=== PATIENT | female | born 1980 | race Caucasian/White ===

== ENCOUNTER 2017-10-01 09:31 | Emergency (ER) | payer OTHER ==
--- NOTE | 2017-10-01 11:04 | ED ---
General Adult HPI - General Chief complaint: Nausea/Vomiting/Diarrhea Stated complaint: Fall-Vomiting, Poss Head Injury Time Seen by Provider: 10/01/17 10:47 Source: patient, RN notes reviewed Mode of arrival: ambulatory Limitations: no limitations - History of Present Illness Initial comments: 36-year-old female presenting with nausea and vomiting over the past 24 hours. Patient fell on Friday striking the right side of her face. She has had headaches since that time which is worsened over the past 24 hours. She developed nausea with eating and some vomiting over the past 24 hours. No abdominal pain. No chest pain or shortness of breath. No extremity pain. Patient denies any numbness or tingling or weakness in the extremities. She does have some mild photophobia and pain on the right side of her face where the injury occurred. There was no loss of consciousness. Patient is not currently on any medication. Denies any neck pain. - Related Data Home Medications Medication Instructions Recorded Confirmed Acetaminophen Tab [Tylenol Tab] 650 mg PO Q4H PRN 10/01/17 10/01/17 [id number] 1 tab PO Q4HR PRN 10/01/17 10/01/17 [Excedrin] Ibuprofen [Motrin Ib] 800 mg PO Q6H PRN 10/01/17 10/01/17 Previous Rx's Medication Instructions Recorded Ondansetron Odt [Zofran Odt] 4 mg PO Q8HR PRN #10 tab 10/01/17 Allergies Allergy/AdvReac Type Severity Reaction Status Date / Time No Known Allergies Allergy Verified 10/01/17 09:53 Review of Systems ROS Statement: Those systems with pertinent positive or pertinent negative responses have been documented in the HPI. ROS Other: All systems not noted in ROS Statement are negative. Past Medical History Past Medical History: Fibromyalgia, Rheumatoid Arthritis (RA) Additional Past Medical History / Comment(s): Diverticulitis History of Any Multi-Drug Resistant Organisms: MRSA Date of last positivie culture/infection: left leg MDRO Source:: 2011 Past Surgical History: Section, Cholecystectomy, Tubal Ligation Past Psychological History: Depression Smoking Status: Current every day smoker Past Alcohol Use History: None Reported Past Drug Use History: None Reported General Exam Limitations: no limitations General appearance: alert, in no apparent distress Head exam: Present: normocephalic. Absent: atraumatic (Right periorbital ecchymosis) Eye exam: Present: PERRL, EOMI, periorbital tenderness (Right periorbital tenderness no fracture appreciated) ENT exam: Present: mucous membranes moist Neck exam: Absent: normal inspection, tenderness, meningismus Respiratory exam: Present: normal lung sounds bilaterally. Absent: respiratory distress, wheezes Cardiovascular Exam: Present: regular rate, normal rhythm GI/Abdominal exam: Present: soft. Absent: distended Extremities exam: Present: normal inspection, full ROM, normal capillary refill. Absent: tenderness, joint swelling Neurological exam: Present: alert, oriented X3, CN II-XII intact. Absent: motor sensory deficit Psychiatric exam: Present: normal affect, normal mood Skin exam: Present: warm, dry, intact. Absent: cyanosis, diaphoretic Course Vital Signs 10/01/17 09:44 Temperature 98.0 F Pulse Rate 81 Respiratory 18 Rate Blood Pressure 132/82 O2 Sat by Pulse 99 Oximetry Medical Decision Making - Medical Decision Making 36-year-old female presenting with head injury and nausea vomiting. Patient's symptoms are somewhat concerning, head CT is obtained and this is negative for intracranial hemorrhage. CT cervical spine is negative for fracture subluxation. Her exam is nonfocal. History and exam concerning for concussion. Patient will take several days off work, she is instructed to follow-up with her primary care physician. She will be given Zofran for her nausea. Disposition Clinical Impression: Concussion Disposition: HOME SELF-CARE Condition: Good Instructions: Concussion (ED) Prescriptions: Ondansetron Odt [Zofran Odt] 4 mg PO Q8HR PRN #10 tab PRN Reason: Vomiting Is patient prescribed a controlled substance at d/c from ED?: No Referrals: None,Stated [Primary Care Provider] - 1-2 days Nay Angela MD [STAFF PHYSICIAN] - 1-2 days Time of Disposition: 11:35
--- NOTE | 2017-10-01 11:21 | CT ---
EXAMINATION TYPE: CT brain dhruvine wo con DATE OF EXAM: 10/01/2017 COMPARISON: NONE HISTORY: Fall, vomiting. Possible head injury. CT DLP: 1877 mGycm. Automated Exposure Control for Dose Reduction was Utilized. TECHNIQUE: CT scan of the head and cervical spine are performed without contrast. FINDINGS: There is no acute intracranial hemorrhage, mass effect, or midline shift identified. The ventricles and sulci are within normal limits in size. The globes are intact and the visualized sin uses are clear. The calvarium is intact. Cervical spine is visualized in its entirety from C1 through upper thoracic levels and demonstrates s atisfactory alignment without evidence of acute fracture or dislocation. Prevertebral soft tissue ap pears within normal limits. The C1-C2 articulation is within normal limits on the coronal images. V ertebral body heights and disc space heights are maintained. No large posterior disc herniations are present. Review of axial images shows no significant findings at any cervical level. Thyroid gland is felt within normal limits. Lung apices are clear. Scattered subcentimeter lymph nodes are present bi laterally. IMPRESSION: 1. There is no acute fracture or dislocation evident in the cervical spine. 2. No acute intracranial hemorrhage, mass effect, or midline shift is seen.
[2017-10-01 11:41] VITALS: BP 129/70; PULSE 78; RESP 16; TEMP 97.8
== END 2017-10-01 11:40 | disposition home or self-care (01) ==
LOC: EC 09:31
DX: S06.0X0A Concussion without loss of consciousness, initial encounter (principal); S00.11XA Contusion of right eyelid and periocular area, initial encounter; F17.200 Nicotine dependence, unspecified, uncomplicated; Z86.14 Personal history of Methicillin resistant Staphylococcus aureus infection; W18.09XA Striking against other object with subsequent fall, initial encounter
CPT/HCPCS: 70450; 72125; 99284

== ENCOUNTER 2021-10-19 09:14 | Observation (INO) | payer MEDICARE, OTHER ==
[2021-10-19 09:48] LABS: Basophils % (A) 0 %; Eosinophils # (A) 0.2 k/uL (0-0.7); Eosinophils % (A) 2 %; HCT 38.9 % (34.0-46.0); HGB 12.2 gm/dL (11.4-16.0); Lymphocytes % (A) 30 %; MCH 26.5 pg (25.0-35.0); MCHC 31.3 g/dL (31.0-37.0); MCV 84.6 fL (80.0-100.0); Mean Platelet Volume 7.4; Monocytes # (A) 0.4 k/uL (0-1.0); Monocytes % (A) 4 %; Neutrophils # (A) 6.3 k/uL (1.3-7.7); Neutrophils % (A) 62 %; Platelet Count 385 k/uL (150-450); RDW 14.7 % (11.5-15.5); WBC 10.2 k/uL (3.8-10.6)
--- NOTE | 2021-10-19 09:55 | XR ---
EXAMINATION TYPE: XR chest 2V DATE OF EXAM: 10/19/2021 COMPARISON: NONE HISTORY: Chest pain. TECHNIQUE: Frontal and lateral views of the chest are obtained. FINDINGS: There is no focal air space opacity, pleural effusion, or pneumothorax seen. The cardiac silhouette size is within normal limits. The osseous structures are intact. IMPRESSION: No acute process.
[2021-10-19 10:01] LABS: ALT 19 U/L (4-34); AST 21 U/L (14-36); African American GFR (CKD) >90 (>60 ml/min/1.73 sqM); Albumin 4.4 g/dL (3.5-5.0); Alkaline Phosphatase 103 U/L (38-126); Anion Gap 10 mmol/L; Blood Urea Nitrogen 11 mg/dL (7-17); Carbon Dioxide 20 mmol/L (22-30); Chloride 109 mmol/L (98-107); Glucose 97 mg/dL (74-99); Magnesium 2.1 mg/dL (1.6-2.3); Non-African American GFR(CKD) >90 (>60 ml/min/1.73 sqM); Potassium 4.1 mmol/L (3.5-5.1); Sodium 139 mmol/L (137-145); Total Bilirubin 0.2 mg/dL (0.2-1.3); Total Protein 7.2 g/dL (6.3-8.2)
[2021-10-19 10:13] LABS: INR 0.9 (<1.2); Partial Thromboplastin Time 26.4 sec (22.0-30.0); Prothrombin Time 9.8 sec (9.0-12.0)
[2021-10-19] MEDS ORDERED: ASPIRIN 81 MG PO STA (12:13)
--- NOTE | 2021-10-19 12:13 | ED ---
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 Patient states that she has a history of MS and antithrombin 3 and was placed on eliquis but stopped taking it 3 years ago related to cost. She denies any diaphoresis, no nausea vomiting diarrhea or fevers. No productive cough. Patient states that she is a daily smoker. No family history of cardiac disease. Patient states that she has a primary care doctor and neurologist Dr. Chun in [place] where she lives. -: hour(s) (5) Location: chest Radiation: non-radiation Severity scale (1-10): 7 Quality: sharp, other (burning) Improves with: none Worsens with: none Associated Symptoms: denies other symptoms Treatments Prior to Arrival: none - Related Data Home Medications Medication Instructions Recorded Confirmed No Known Home Medications 10/19/21 10/19/21 Allergies Allergy/AdvReac Type Severity Reaction Status Date / Time No Known Allergies Allergy Verified 10/19/21 12:51 Review of Systems ROS Statement: Those systems with pertinent positive or pertinent negative responses have been documented in the HPI. ROS Other: All systems not noted in ROS Statement are negative. Past Medical History Past Medical History: Fibromyalgia, Rheumatoid Arthritis (RA) Additional Past Medical History / Comment(s): Diverticulitis, antithrombin 3. History of Any Multi-Drug Resistant Organisms: MRSA Date of last positivie culture/infection: left leg MDRO Source:: 2011 Past Surgical History: Section, Cholecystectomy, Tubal Ligation Past Psychological History: Depression Smoking Status: Current every day smoker Past Alcohol Use History: None Reported Past Drug Use History: Marijuana General Exam Limitations: no limitations General appearance: alert, in no apparent distress Head exam: Present: atraumatic Eye exam: Present: normal appearance Respiratory exam: Present: normal lung sounds bilaterally, wheezes (slight right posterior upper lobe). Absent: chest wall tenderness, accessory muscle use, decreased breath sounds Cardiovascular Exam: Present: normal rhythm, bradycardia (56) GI/Abdominal exam: Present: soft. Absent: distended, tenderness Extremities exam: Present: normal inspection, full ROM, normal capillary refill. Absent: tenderness, pedal edema Back exam: Absent: tenderness, CVA tenderness (R), CVA tenderness (L) Neurological exam: Present: alert, oriented X3 Psychiatric exam: Present: normal affect, normal mood Skin exam: Present: warm, dry, intact. Absent: normal color, cyanosis, diaphoretic, petechiae, pallor Course Vital Signs 10/19/21 10/19/21 10/19/21 09:22 12:18 13:59 Temperature 98.3 F 98.2 F 98.1 F Pulse Rate 72 51 L 51 L Respiratory 18 14 14 Rate Blood Pressure 129/82 114/64 111/84 O2 Sat by Pulse 100 98 99 Oximetry EKG Findings - EKG Results: EKG: sinus rhythm (Ventricular rate 56, AR interval 0.166, QRS 0.98, QTc 0.389) Medical Decision Making - Medical Decision Making Patient complaining of stabbing and burning chest pain since 7 AM with no relief. She is a smoker, history of antithrombin III but not taking eliquis as prescribed. She also has a history of MS. She has not had a cardiac evaluation in the past. CBC and electrolytes are unremarkable. Troponin is negative at 0.012, EKG shows sinus bradycardia at 56. Patient will be admitted to observation for cardiac consult. Patient is agreeable to this plan of care. CT angiogram of the chest is pending along with second troponin. Case discussed with Dr. Wade. - Lab Data Result diagrams: 10/19/21 09:33 10/19/21 09:33 Lab Results 10/19/21 10/19/21 10/19/21 Range/Units 09:33 09:33 09:33 WBC 10.2 (3.8-10.6) k/uL RBC 4.60 (3.80-5.40) m/uL Hgb 12.2 (11.4-16.0) gm/dL Hct 38.9 (34.0-46.0) % MCV 84.6 (80.0-100.0) fL MCH 26.5 (25.0-35.0) pg MCHC 31.3 (31.0-37.0) g/dL RDW 14.7 (11.5-15.5) % Plt Count 385 (150-450) k/uL MPV 7.4 Neutrophils % 62 % Lymphocytes % 30 % Monocytes % 4 % Eosinophils % 2 % Basophils % 0 % Neutrophils # 6.3 (1.3-7.7) k/uL Lymphocytes # 3.0 (1.0-4.8) k/uL Monocytes # 0.4 (0-1.0) k/uL Eosinophils # 0.2 (0-0.7) k/uL Basophils # 0.0 (0-0.2) k/uL PT 9.8 (9.0-12.0) sec INR 0.9 (<1.2) APTT 26.4 (22.0-30.0) sec D-Dimer 0.48 (<0.60) mg/L FEU Sodium 139 (137-145) mmol/L Potassium 4.1 (3.5-5.1) mmol/L Chloride 109 H (98-107) mmol/L Carbon Dioxide 20 L (22-30) mmol/L Anion Gap 10 mmol/L BUN 11 (7-17) mg/dL Creatinine 0.62 (0.52-1.04) mg/dL Est GFR (CKD-EPI)AfAm >90 (>60 ml/min/1.73 sqM) Est GFR (CKD-EPI)NonAf >90 (>60 ml/min/1.73 sqM) Glucose 97 (74-99) mg/dL Calcium 9.0 (8.4-10.2) mg/dL Magnesium 2.1 (1.6-2.3) mg/dL Total Bilirubin 0.2 (0.2-1.3) mg/dL AST 21 (14-36) U/L ALT 19 (4-34) U/L Alkaline Phosphatase 103 (38-126) U/L Troponin I (0.000-0.034) ng/mL Total Protein 7.2 (6.3-8.2) g/dL Albumin 4.4 (3.5-5.0) g/dL 10/19/21 Range/Units 09:33 WBC (3.8-10.6) k/uL RBC (3.80-5.40) m/uL Hgb (11.4-16.0) gm/dL Hct (34.0-46.0) % MCV (80.0-100.0) fL MCH (25.0-35.0) pg MCHC (31.0-37.0) g/dL RDW (11.5-15.5) % Plt Count (150-450) k/uL MPV Neutrophils % % Lymphocytes % % Monocytes % % Eosinophils % % Basophils % % Neutrophils # (1.3-7.7) k/uL Lymphocytes # (1.0-4.8) k/uL Monocytes # (0-1.0) k/uL Eosinophils # (0-0.7) k/uL Basophils # (0-0.2) k/uL PT (9.0-12.0) sec INR (<1.2) APTT (22.0-30.0) sec D-Dimer (<0.60) mg/L FEU Sodium (137-145) mmol/L Potassium (3.5-5.1) mmol/L Chloride (98-107) mmol/L Carbon Dioxide (22-30) mmol/L Anion Gap mmol/L BUN (7-17) mg/dL Creatinine (0.52-1.04) mg/dL Est GFR (CKD-EPI)AfAm (>60 ml/min/1.73 sqM) Est GFR (CKD-EPI)NonAf (>60 ml/min/1.73 sqM) Glucose (74-99) mg/dL Calcium (8.4-10.2) mg/dL Magnesium (1.6-2.3) mg/dL Total Bilirubin (0.2-1.3) mg/dL AST (14-36) U/L ALT (4-34) U/L Alkaline Phosphatase (38-126) U/L Troponin I <0.012 (0.000-0.034) ng/mL Total Protein (6.3-8.2) g/dL Albumin (3.5-5.0) g/dL Disposition Clinical Impression: Chest pain Disposition: ADMITTED IP TO THIS [facility] Decision Date: 10/19/21 Decision Time: 12:31
[2021-10-19] MEDS ORDERED: SODIUM CHLORIDE 0.9% 500 ML 500 ML IV ONE (12:14)
[2021-10-19] MEDS ORDERED: PANTOPRAZOLE 40 MG/10 ML VIAL IVP STA (12:14)
[2021-10-19] MEDS ORDERED: MAG HYDROX/AL HYDROX/SIMETH 30 ML, HYOSCYAMINE ELIXIR 10 ML, LIDOCAINE VISCOUS 2% 10 ML PO STA ×3 (12:14)
[2021-10-19] MEDS ORDERED: ACETAMINOPHEN TAB 325 MG TAB PO PRN (12:36)
[2021-10-19] MEDS ORDERED: ONDANSETRON 4 MG/2 ML VIAL IVP PRN (12:36)
[2021-10-19] MEDS ORDERED: HYDROmorphone 0.5 MG/0.5 ML SYRINGE IVP PRN (12:36)
[2021-10-19] MEDS ORDERED: NALOXONE 0.4 MG/ML 1 ML VIAL IV PRN ×2 (12:36→14:50)
--- NOTE | 2021-10-19 14:53 | CT ---
EXAMINATION TYPE: CT angio chest DATE OF EXAM: 10/19/2021 2:33 PM COMPARISON: None HISTORY: chest pain CT DLP: 590.4 mGycm Automated exposure control for dose reduction was used. CONTRAST: CTA scan of the thorax is performed with IV Contrast, patient injected with 100 mL of Isovue 370, pul monary embolism protocol. 3-D postprocessing was performed.. FINDINGS: There are a few scattered 3 mm pulmonary nodules in the right upper and right middle lobe. There is n o lung consolidation or interstitial density. There is no pleural effusion, pleural thickening or pneumothorax. The great vessels the chest are normal and there is no mediastinal, hilar or axillary adenopathy. The re is satisfactory contrast opacification of pulmonary artery and branches and there are no filling d efects to suggest pulmonary embolism. Limited scanning through the upper abdomen reveals no gross abnormality. The osseous structures are intact. IMPRESSION: 1. No acute cardiopulmonary disease. 2. No evidence of pulmonary embolism. 3. Few scattered small sub-6 mm right upper lobe and middle lobe pulmonary nodules. Follow-up CT ches t in 6 months is recommended to confirm stability.
--- NOTE | 2021-10-19 15:17 | P.HPIM ---
History of Present Illness H&P Date: 10/19/21 Chief Complaint: Chest pain 40-year-old female with no regular doctor follow-ups presented to the ED today with stabbing midsternal chest pain which started this morning. She reports she was not doing any exertional activity at the time the pain started. She still reports chest pain but not as severe as that of this morning. Her past medical history significant for MS and antithrombin III deficiency. She does state that she has a neurologist who she follows up with on an irregular basis. She denies any shortness of breath. She rates the pain at 8 out of 10 in its highest severity. She denies any radiation. She reports that she has been a smoker for 30 years, smokes less than a pack per day. Denies any cardiac history. She states that she was placed on eliquis but stopped taking it 3 years ago due to cost issues. She denies any shortness of breath, palpitations, nausea, vomiting, fever. Denies cough. Workup in the ED was essentially unremarkable including negative initial troponin and negative d-dimer. Patient will be admitted for observation to t rend troponins and rule out ACS. CT angiogram of the chest was negative for PE. Review of Systems Constitutional: Patient reports no fever, no chills, no weight changes, no change in appetite Eyes: Patient reports no double vision, no visual changes ENT: Patient reports no rhinorrhea, no post nasal drip, no sore throat Cardiovascular: Chest pain positive, no orthopnea no PND Respiratory: Patient reports no dyspnea, no cough, no wheeze Gastrointestinal: Patient reports no nausea, no vomiting, no constipation, no diarrhea Genitourinary: Patient reports no dysuria, no urinary frequency, no hematuria. Musculoskeletal: Patient reports no unusual joint pain, no joint swelling or weakness. Patient reports no muscular pain. Psychiatric: Patient reports no changes in mood, no sleeping problems. Patient reports no changes in memory. Endocrine: Patient reports no thirst, no polyuria, no cold intolerance, no heat intolerance. Neurological: Patient reports no unusual paresthesias, no seizures, no paresis, no paralysis, no facila droop, no headache. Heme/Lymphatic: Patient reports no easy bruising, no bleeding tendency, no lymphadenopathy. Allergic/ Immunologic: Patient reports no recent allergic reactions or immunologic history. Skin: Patient reports no rashes or unusual lesions. Past Medical History Past Medical History: Fibromyalgia, Rheumatoid Arthritis (RA) Additional Past Medical History / Comment(s): Diverticulitis, antithrombin 3. History of Any Multi-Drug Resistant Organisms: MRSA Date of last positivie culture/infection: left leg MDRO Source:: 2011 Past Surgical History: Section, Cholecystectomy, Tubal Ligation Past Psychological History: Depression Smoking Status: Current every day smoker Past Alcohol Use History: None Reported Past Drug Use History: Marijuana Medications and Allergies Home Medications Medication Instructions Recorded Confirmed Type No Known Home Medications 10/19/21 10/19/21 History Allergies Allergy/AdvReac Type Severity Reaction Status Date / Time No Known Allergies Allergy Verified 10/19/21 12:51 Physical Exam Vitals: Vital Signs Temp Pulse Resp BP Pulse Ox 10/19/21 13:59 98.1 F 51 L 14 111/84 99 10/19/21 12:18 98.2 F 51 L 14 114/64 98 10/19/21 09:22 98.3 F 72 18 129/82 100 Intake and Output 10/19/21 10/19/21 10/19/21 06:59 14:59 22:59 Other: Weight 92.986 kg Constitutional: No acute distress, conversant, pleasant, obese Eyes: Anicteric sclerae, moist conjunctiva, no lid-lag PERRLA HENMT: Normocephalic / Atraumatic oropharynx clear, no erythema, exudates Neck: Supple, full range of motion, nontender, no masses, or JVD no carotid bruits no thyromegaly no lymphadenopathy Lungs: Bilateral equal air entry with no wheezing or crackles. No use of accessory muscles. Cardiovascular: Heart regular in rate and rhythm, no murmur, no peripheral edema Abdominal: Soft, Nontender, no guarding, rebound or rigidity abdomen moving with respiration normoactive bowel sounds no hepatomegaly, No splenomegaly no pal pable mass no abdominal wall hernia noted Skin: Normal temperature, tone, texture, turgor no induration no subcutaneous nodules no rash,lesions no ulcers Extremities: No digital cyanosis no clubbing pedal pulses intact and symmetrical radial pulses intact and symmetrical normal gait and station no calf tenderness Psychiatric: Alert and oriented to person, place and time appropriate affect intact judgement Neuro: Muscle Strength 5/5 in all 4 extremities sensation to light touch grossly present throughout cranial nerves II-XII grossly intact no focal sensory deficits Results CBC & Chem 7: 10/19/21 09:33 10/19/21 09:33 Labs: Abnormal Lab Results - Last 24 Hours (Table) 10/19/21 Range/Units 09:33 Chloride 109 H (98-107) mmol/L Carbon Dioxide 20 L (22-30) mmol/L Thrombosis Risk Factor Assmnt - DVT/VTE Prophylaxis DVT/VTE Prophylaxis: Pharmacologic Prophylaxis ordered, Mechanical Prophylaxis ordered Assessment and Plan Assessment: Chest pain, rule out ACS - Monitor and cardiac telemetry, admitted for observation overnight -Trend troponins, initial troponin negative - Initial EKG negative for acute ischemic changes - CTA of the chest negative for PE Anti-thrombin 3 deficiency - Patient was advised to take liquids, however noncompliant due to cost issues - Discussed other options of anticoagulation with the patient, and patient reports she will discuss with her PCP Fibromyalgia, rheumatoid arthritis DVT prophylaxis with subcutaneous Lovenox GI prophylaxis with Protonix as patient's symptoms could be consistent with GERD. I spent 50 minutes in admitting this patient. Time with Patient: Greater than 30
--- NOTE | 2021-10-19 16:25 | US ---
EXAMINATION TYPE: US venous doppler duplex LE DATE OF EXAM: 10/19/2021 4:01 PM COMPARISON: NONE CLINICAL HISTORY: edema. pain bilateral legs for 4 years, getting worse SIDE PERFORMED: bilateral TECHNIQUE: The lower extremity deep venous system is examined utilizing real time linear array sonog susan with graded compression, doppler sonography and color-flow sonography. VESSELS IMAGED: Common Femoral Vein Deep Femoral Vein Greater Saphenous Vein * Femoral Vein Popliteal Vein Small Saphenous Vein * Proximal Calf Veins (* superficial vessels) Right Leg: no evidence of DVT Left Leg: no evidence of DVT IMPRESSION: The deep venous systems of the lower extremities from the common femoral vein to the proximal calf ve ins are patent and compressible follow-up with augmentable flow throughout and there is no evidence o f DVT.
[2021-10-19] MEDS: NICOTINE 21MG/24HR PATCH TRANSDERM SCH (18:37)
[2021-10-20] MEDS: NICOTINE 21MG/24HR PATCH TRANSDERM SCH ×2 (08:15→08:17)
[2021-10-20] MEDS ORDERED: ENOXAPARIN 40 MG/0.4 ML SYRINGE SQ SCH (09:00)
--- NOTE | 2021-10-20 11:04 | CONS ---
CONSULTATION CHIEF COMPLAINT: Chest pain. HISTORY OF PRESENT ILLNESS: This is a 40-year-old lady with a history of multiple sclerosis and antithrombin 3 deficiency, who was on Eliquis at 1 time, but stopped taking it about 3 years ago secondary to cost issues. Presented to the hospital complaining of chest discomfort. She was off work for several years and has recently started working and started having sharp precordial chest discomfort, mild to moderate intensity without radiation to neck, arm or back. Unassociated with diaphoresis and unrelated to exertion without clear-cut relieving or exacerbating factors. The patient states that she normally gets episodes of chest discomfort 1-2 times a week and this and she came in. She describes it as a burning discomfort. At the time of my evaluation this morning, she is chest pain free, hemodynamically stable and in no apparent distress. EKG does not reveal ischemic changes and cardiac enzymes have been negative. There is no prior history of coronary artery disease or congestive heart failure, she has not had any cardiac workup in the past. PAST MEDICAL HISTORY: Significant for multiple sclerosis, fibromyalgia, rheumatoid arthritis, antithrombin 3 deficiency. PAST SURGICAL HISTORY: Significant for cholecystectomy, and tubal ligation. SOCIAL HISTORY: Significant for smoking and marijuana use. REVIEW OF SYSTEMS: Fourteen of the 14 system review has been performed. Pertinents were as documented in history of presenting illness. PHYSICAL EXAMINATION: On exam she is comfortable at rest. Vital signs stable. Chest exam reveals good air entry bilaterally. Heart exam reveals first and second heart sounds. No gallop. No murmur. No rub. Abdomen is soft, nontender. Exam of extremities did not reveal any edema. Peripheral pulses are felt. [employer] exam did not reveal any focal neurological deficits. LABORATORY DATA: Labs show a hemoglobin of 12.2, platelet count is 385. Potassium is 4.1, creatinine is 0.6. Two sets of troponins negative. EKG is normal. ASSESSMENT: Precordial chest pain, sharp, atypical. Probably noncardiac in origin. She had an EKG does not reveal ischemic changes. Cardiac enzymes have been negative. CT scan of the chest is negative for pulmonary embolism. Venous duplex study is negative for deep vein thrombosis. I am going to review the echocardiogram and if it looks good, she may be discharged home and arranged outpatient stress test and echo. MMODL / IJN: [id number] /
--- NOTE | 2021-10-20 11:24 | CA ---
Transthoracic Echo Report Name: Carmen Seals Age: 40 Gender: F : 1980 Exam Date: 10/20/2021 10:10 Exam Location: [facility] Ht (in): 62 Wt (lb): 205 Ordering Physician: Padmini Keating Attending/Referring Phys: Auto Repair Technician Ivonne Pelayo RDCS Procedure CPT: Indications: Chest Pain Cardiac Hx: Technical Quality: Good Contrast 1: Total Dose (mL): Contrast 2: Total Dose (mL): MEASUREMENTS (Male / Female) Normal Values 2D ECHO LV Diastolic Diameter PLAX 3.3 cm 4.2 - 5.9 / 3.9 - 5.3 cm LV Systolic Diameter PLAX 1.9 cm IVS Diastolic Thickness 1.3 cm 0.6 - 1.0 / 0.6 - 0.9 cm LVPW Diastolic Thickness 1.6 cm 0.6 - 1.0 / 0.6 - 0.9 cm LV Relative Wall Thickness 0.9 RV Internal Dim ED PLAX 3.5 cm M-MODE Aortic Root Diameter MM 3.2 cm LA Systolic Diameter MM 3.4 cm LA Ao Ratio MM 1.1 MV E Point Septal Separation 0.3 cm AV Cusp Separation MM 2.4 cm DOPPLER AV Peak Velocity 136.2 cm/s AV Peak Gradient 7.4 mmHg MV Area PHT 2.1 cm??? MR Peak Velocity 127.5 cm/s MR Peak Gradient 6.5 mmHg Mitral E Point Velocity 75.6 cm/s Mitral A Point Velocity 46.9 cm/s Mitral E to A Ratio 1.6 MV Deceleration Time 359.4 ms TR Peak Velocity 199.4 cm/s TR Peak Gradient 15.9 mmHg Right Ventricular Systolic Press 19.3 mmHg FINDINGS Left Ventricle Mildly increased septal wall thickness. Severely increased posterior wall thickness. Left ventricular ejection fraction is estimated at 55-60 %. Right Ventricle The right ventricle is normal in size and function. Right Atrium The right atrium is normal in size. Left Atrium The left atrium is normal in size. Mitral Valve Structurally normal mitral valve without significant stenosis or prolapse. There is trace mitral regurgitation. Aortic Valve Structurally normal aortic valve without significant sclerosis or stenosis. There is no aortic regurgitation. Tricuspid Valve Structurally normal tricuspid valve without significant stenosis. Pulmonary artery systolic pressure is normal. Trace tricuspid regurgitation. Pulmonic Valve Structurally normal pulmonic valve without significant stenosis. There is no pulmonic regurgitation. Pericardium Normal pericardium without effusion. Aorta Normal aortic root dimension. CONCLUSIONS Left ventricular hypertrophy with normal LV systolic function Previewed by: Dr. Chino Roblero MD (Electronically Signed) Final Date: 20 Oct 2021 11:23
--- NOTE | 2021-10-20 15:03 | P.DS ---
Providers Date of admission: 10/19/21 13:19 Attending physician: Gricelda Villanueva MD Consults: 10/19/21 12:36 Consult Physician Routine Consulting Provider: Wayne Gardner Consult Reason/Comments: chest pain Do you want consulting provider notified?: Yes Primary care physician: Brian Plunkett MD Hospital Course: 40-year-old female with No pcp follow Her past medical history significant for MS and antithrombin III deficiency. She does state that she has a neurologist who she follows up with on an irregular basis. She was noted to the hospital with chief complaint of chest pain. Cardiac workup was performed in the hospital which revealed a negative echocardiogram. Patient was seen by cardiology team. Noske make changes were seen on EKG and troponins were negative. Patient did have a computed tomography scan performed which ruled out PE and other pneumonic process. Patient is likely having pleuritic costochondritis chest pain. She was prescribed a short course of anti- inflammatory medication on discharge. Patient is not taking any home medication she doesn't follow up with her PCP or neurologist. Recommended patient to follow-up with her PCP and neurologist as she has conditions which need to be closely monitored outpatient including her MS as well as further exploration and her history of anti-thrombin deficiency. Patient was prescribed with short course of naproxen for anti-inflammatory effect, Protonix for GI protection, and baclofen. Patient was seen and examined on day of discharge. Full physical exam was performed within normal limits. Discharge 33 minutes spent Plan - Discharge Summary Discharge Rx Participant: No New Discharge Prescriptions: New Baclofen 10 mg PO TID PRN #9 tab PRN Reason: Pain Naproxen [EC-Naproxen] 500 mg PO BID 5 Days #10 tab Omeprazole 20 mg PO DAILY #10 tab Discharge Medication List Baclofen 10 mg PO TID PRN #9 tab 10/20/21 [Rx] Naproxen [EC-Naproxen] 500 mg PO BID 5 Days #10 tab 10/20/21 [Rx] Omeprazole 20 mg PO DAILY #10 tab 10/20/21 [Rx] Follow up Appointment(s)/Referral(s): Brian Plunkett MD [Primary Care Provider] - 1-2 days
[2021-10-20 15:06] VITALS: BP 123/75; PULSE 51; RESP 18; TEMP 98.5
== END 2021-10-20 15:55 | disposition home or self-care (01) ==
LOC: EC 09:14 → 6NMEDSUR 13:19
PROVIDERS: ADMIT Internal Medicine; ATTEND Internal Medicine
DX: R07.89 Other chest pain (principal); G35 Multiple sclerosis; M79.7 Fibromyalgia; T45.516A Underdosing of anticoagulants, initial encounter; Z91.120 Patient's intentional underdosing of medication regimen due to financial hardship; Z91.19 Patient's noncompliance with other medical treatment and regimen; R00.1 Bradycardia, unspecified; M06.9 Rheumatoid arthritis, unspecified; F32.A Depression, unspecified; D68.59 Other primary thrombophilia; E66.9 Obesity, unspecified; Z68.36 Body mass index [BMI] 36.0-36.9, adult; F17.210 Nicotine dependence, cigarettes, uncomplicated; Z86.14 Personal history of Methicillin resistant Staphylococcus aureus infection; Z90.49 Acquired absence of other specified parts of digestive tract; Z71.9 Counseling, unspecified
CPT/HCPCS: 96372; 96374; 99285; 36415; 93005; 93306; 85379; 80053; 83735; 84484; 85025; 85610; 85730; 71046; 93970; 71275; G0378 ×2; J1650; C9113; Q9967